=== PATIENT | male | born 1995 ===

== ENCOUNTER → 2017-09-23 | Outpatient (REF) ==
[2017-09-23 14:13] LABS: BASO % 0.1 % (0.0-2.0); EOS # 0.1 (0.0-0.7); EOS % 1.2 % (0-4.0); GRAN # 4.6 (1.4-6.5); GRAN % 61.1 % (42.2-75.2); HEMATOCRIT 39.7 % (36.0-47.0); HEMOGLOBIN 13.5 g/dl (12.5-16.1); LYMPH # 2.5 (1.2-3.4); LYMPH % 33.1 % (20.0-51.0); MEAN CELL VOLUME 86 fl (80.0-95.0); MEAN CORPUSCULAR HEMOGLOBIN 29 pg (26.0-32.0); MEAN CORPUSCULAR HGB CONC 34 g/dl (33.0-37.0); MEAN PLATELET VOLUME 9.3 fl (7.4-10.4); MONO # 0.3 (0.1-0.6); MONO % 4.2 % (1.7-9.3); PLATELET COUNT 271 K/mm3 (130-400); RED BLOOD COUNT 4.63 M/mm3 (4.20-5.60)
[2017-09-23 14:27] LABS: SYNOVIAL FL. MONONUCLEAR 88.3 % (0-75); SYNOVIAL FLUID RBC 1000 /mm3 (0-0); SYNOVIAL FLUID WBC 120 /mm3 (200-600)
[2017-09-23 14:28] LABS: SYNOVIAL FLUID COLOR YELLOW
[2017-09-23 14:30] LABS: SYNOVIAL FLUID APPEARANCE CLOUDY
[2017-09-23 14:33] LABS: ERYTHROCYTE SEDIMENTATION RATE 1 mm/hr (0-15)
[2017-09-23 14:45] LABS: URIC ACID 5.9 mg/dL (3.5-8.5)
[2017-09-23 14:49] LABS: C-REACTIVE PROTEIN < 0.5 mg/dL (0.0-0.9)
[2017-09-23 22:05] LABS: RHEUMATOID FACTOR-SCREEN <15 IU/mL (0-29)
[2017-09-25 00:39] LABS: ANA SCREEN with REFLEX Negative (Negative)
== END ==
LOC: ZMSC 13:54
PROVIDERS: Orthopaedic Surgery
DX: Z01.89 Encounter for other specified special examinations (principal)